=== PATIENT | female | born 1965 | race Hispanic/Latino ===

== ENCOUNTER 2020-10-08 07:36 | Emergency (ER) | payer SELFPAY ==
[2020-10-08 08:07] LABS: BASOPHILS % (AUTO) 0.6 % (0.0-5.0); EOSINOPHILS % (AUTO) 2.6 % (0.0-8.0); HEMATOCRIT 41.3 % (36-48); LYMPHOCYTES % (AUTO) 34.8 % (21.0-51.0); MEAN CORPUSCULAR HEMOGLOBIN 29.3 pg (27.0-33.0); MEAN CORPUSCULAR HGB CONC 33.2 g/dL (32.0-36.0); MEAN CORPUSCULAR VOLUME 88.4 fL (79-99); MONOCYTES % (AUTO) 13.8 % (3.0-13.0); NEUTROPHILS % (AUTO) 47.9 % (40.0-77.0); PLATELET COUNT (AUTO) 214 K/uL (130-400); RED BLOOD CELL COUNT(AUTO) 4.67 MIL/uL (4.00-5.50); RED CELL DISTRIBUTION WIDTH 12.2 % (11.0-15.5); WHITE BLOOD COUNT (AUTO) 6.2 K/uL (4.8-10.8)
[2020-10-08 08:22] LABS: APPEARANCE,URINE Clear (CLEAR); BILIRUBIN,URINE Negative (NEGATIVE); COLOR,URINE Yellow (YELLOW); GLUCOSE, URINE (UA) Negative (NEGATIVE); KETONES,URINE Negative (NEGATIVE); LEUKOCYTE ESTERASE ,URINE Negative (NEGATIVE); NITRATE,URINE Negative (NEGATIVE); OCCULT BLOOD,URINE Negative (NEGATIVE); PROTEIN,URINE Negative (NEGATIVE); UROBILINOGEN,URINE 0.2 mg/dL (0.2-1.0)
[2020-10-08 08:48] LABS: ALBUMIN 3.9 g/dL (3.5-5.0); BILIRUBIN,TOTAL 0.3 mg/dL (0.2-1.0); CREATININE 0.7 mg/dL (0.5-1.5); POTASSIUM 3.7 mmol/L (3.5-5.1); TOTAL PROTEIN, SERUM 7.8 g/dL (6.0-8.3)
[2020-10-08] MEDS ORDERED: KETOROLAC TROMETHAMINE 30MG/ML ONE (08:57)
== END 2020-10-08 10:44 | disposition home or self-care (01) ==
LOC: EDH 07:36
DX: R10.11 Right upper quadrant pain (principal); R11.2 Nausea with vomiting, unspecified; R03.0 Elevated blood-pressure reading, without diagnosis of hypertension; Z91.041 Radiographic dye allergy status; Z91.013 Allergy to seafood
CPT/HCPCS: 36415; 76705; 80053; 81003; 82550; 83690; 84484; 85025; 93005; 96374; 99285; J1885

== ENCOUNTER 2023-02-21 19:39 | Emergency (ER) | payer BC ==
[~2023-02-21] VITALS: Ht 162.6 cm; Wt 80.7 kg
[~2023-02-21 19:39] MED LIST: LEVO750T39 PO; TAMS-1 PO
[2023-02-21 21:08] VITALS: BP 167/97; PULSE 64; RESP 20
[2023-02-21] MEDS ORDERED: KETOROLAC 60 MG VIAL (30MG/ML) IM ONE (22:00)
[2023-02-21] MEDS ORDERED: HYDROCODONE/ACETAMINOPHEN 5/325 MG TAB PO ONE (22:00)
[2023-02-21] MEDS ORDERED: CYCL5TAB PO (23:08)
[2023-02-21] MEDS ORDERED: IBUP-2070 PO (23:08)
== END 2023-02-21 23:15 | disposition home or self-care (01) ==
LOC: EDH 19:39
DX: S16.1XXA Strain of muscle, fascia and tendon at neck level, initial encounter (principal); S39.012A Strain of muscle, fascia and tendon of lower back, initial encounter; S09.90XA Unspecified injury of head, initial encounter; I10 Essential (primary) hypertension; Z88.8 Allergy status to other drugs, medicaments and biological substances; W01.10XA Fall on same level from slipping, tripping and stumbling with subsequent striking against unspecified object, initial encounter; Y93.01 Activity, walking, marching and hiking; Y92.89 Other specified places as the place of occurrence of the external cause; Y99.8 Other external cause status
CPT/HCPCS: 99285; 70450; 72125; 72131; 96372; J1885

== ENCOUNTER 2023-05-14 14:27 | Emergency (ER) | payer BC ==
[~2023-05-14] VITALS: Ht 162.6 cm; Wt 78.5 kg
[~2023-05-14 14:27] MED LIST changes: +CYCL5TAB PO; +IBUP-2070 PO
[2023-05-14 14:55] VITALS: BP 117/85; PULSE 77; RESP 20
[2023-05-14 15:38] LABS: APPEARANCE,URINE CLEAR (CLEAR); BILIRUBIN,URINE NEGATIVE (NEGATIVE); COLOR,URINE LIGHT-YELLOW (YELLOW); GLUCOSE, URINE (UA) NEGATIVE (NEGATIVE); KETONES,URINE NEGATIVE (NEGATIVE); LEUKOCYTE ESTERASE ,URINE 500 Leu/uL (NEGATIVE); NITRATE,URINE NEGATIVE (NEGATIVE); OCCULT BLOOD,URINE LARGE (NEGATIVE); PH,URINE 5.5 (5.0-8.0); PROTEIN,URINE NEGATIVE (NEGATIVE); UROBILINOGEN,URINE 0.2 mg/dL (0.2-1.0)
[2023-05-14 15:42] LABS: ADD UA MICROSCOPIC YES
[2023-05-14 15:48] LABS: BACTERIA,URINE FEW /HPF (None Seen); MUCUS,URINE RARE LPF (None Seen); SQUAMOUS EPITHELIAL CELL,UR RARE /HPF (0-2); WBC,URINE 51-100 /HPF (0-1)
[2023-05-14 16:02] LABS: BASOPHILS # (AUTO) 0.05 K/uL (0.00-0.20); BASOPHILS % (AUTO) 0.4 % (0.0-5.0); EOSINOPHILS # (AUTO) 0.06 K/uL (0.00-0.70); EOSINOPHILS % (AUTO) 0.5 % (0.0-8.0); HEMATOCRIT 41.5 % (36-48); IMMATURE GRANULOCYTE ABSOLUTE 0.04 K/uL (0-1); LYMPHOCYTES # (AUTO) 1.8 K/uL (1.0-4.8); LYMPHOCYTES % (AUTO) 15.3 % (21.0-51.0); MEAN CORPUSCULAR HEMOGLOBIN 29.7 pg (27.0-33.0); MEAN CORPUSCULAR VOLUME 89.8 fL (79-99); MONOCYTES # (AUTO) 0.8 K/uL (0.1-1.0); MONOCYTES % (AUTO) 6.9 % (3.0-13.0); NEUTROPHILS # (AUTO) 8.9 K/uL (1.8-7.7); NEUTROPHILS % (AUTO) 76.6 % (40.0-77.0); PLATELET COUNT (AUTO) 226 K/uL (130-400); RED BLOOD CELL COUNT(AUTO) 4.62 MIL/uL (4.00-5.50); RED CELL DISTRIBUTION WIDTH 13.2 % (11.0-15.5); WHITE BLOOD COUNT (AUTO) 11.6 K/uL (4.8-10.8)
[2023-05-14 16:11] LABS: CREATININE 0.8 mg/dL (0.5-1.5); POTASSIUM 3.4 mmol/L (3.5-5.1)
[2023-05-14 16:16] LABS: ALBUMIN 3.6 g/dL (3.5-5.0); BILIRUBIN,TOTAL 0.5 mg/dL (0.2-1.0); TOTAL PROTEIN, SERUM 7.7 g/dL (6.0-8.3)
[2023-05-14] MEDS ORDERED: ONDANSETRON 4MG TABLET PO ONE (16:30)
[2023-05-14] MEDS ORDERED: KETOROLAC 30MG VIAL (30MG/ML) IM ONE (16:30)
[2023-05-14] MEDS ORDERED: CYCL-309 PO (17:37)
[2023-05-14] MEDS ORDERED: IBUP-2077 PO (17:37)
[2023-05-14] MEDS ORDERED: TAMS-1 PO (17:58)
[2023-05-14] MEDS ORDERED: CEPH500B PO (17:58)
[2023-05-14] MEDS ORDERED: KETO10TA2 PO (17:58)
== END 2023-05-14 19:40 | disposition home or self-care (01) ==
LOC: EDH 14:27
DX: N13.2 Hydronephrosis with renal and ureteral calculous obstruction (principal); N23 Unspecified renal colic; N39.0 Urinary tract infection, site not specified; D72.829 Elevated white blood cell count, unspecified; E86.0 Dehydration; Z88.8 Allergy status to other drugs, medicaments and biological substances; Z91.041 Radiographic dye allergy status
CPT/HCPCS: 99284; 74176; 80053; 85025; 87077; 87088; 87186; 81001; 36415; 96372; Q0162; J1885

== ENCOUNTER 2023-08-14 14:36 | Emergency (ER) | payer BC ==
[~2023-08-14] VITALS: Ht 162.6 cm; Wt 80.7 kg
[~2023-08-14 14:36] MED LIST changes: +CEPH500B PO; +CYCL-309 PO; +IBUP-2077 PO; +KETO10TA2 PO
[2023-08-14 15:09] LABS: RAPID GROUP A STREP negative (NEGATIVE)
[2023-08-14 15:11] LABS: APPEARANCE,URINE CLOUDY (CLEAR); BILIRUBIN,URINE NEGATIVE (NEGATIVE); COLOR,URINE BROWN (YELLOW); GLUCOSE, URINE (UA) NEGATIVE (NEGATIVE); KETONES,URINE NEGATIVE (NEGATIVE); LEUKOCYTE ESTERASE ,URINE 250 Leu/uL (NEGATIVE); NITRATE,URINE NEGATIVE (NEGATIVE); OCCULT BLOOD,URINE LARGE (NEGATIVE); PROTEIN,URINE 30 mg/dL (NEGATIVE); UROBILINOGEN,URINE 0.2 mg/dL (0.2-1.0)
[2023-08-14 15:13] LABS: SARS-CoV-2, RNA, NAAT NEGATIVE SARS CoV-2 (NEGATIVE)
[2023-08-14 15:14] LABS: ADD UA MICROSCOPIC YES
[2023-08-14 15:19] LABS: INFLUENZA TYPE A Negative For Type A (NEGATIVE); INFLUENZA TYPE B Negative For Type B (NEGATIVE)
[2023-08-14 15:26] LABS: BASOPHILS # (AUTO) 0.03 K/uL (0.00-0.20); BASOPHILS % (AUTO) 0.4 % (0.0-5.0); EOSINOPHILS # (AUTO) 0.01 K/uL (0.00-0.70); EOSINOPHILS % (AUTO) 0.1 % (0.0-8.0); HEMATOCRIT 40.9 % (36-48); IMMATURE GRANULOCYTE ABSOLUTE 0.04 K/uL (0-1); LYMPHOCYTES # (AUTO) 1.4 K/uL (1.0-4.8); LYMPHOCYTES % (AUTO) 16.6 % (21.0-51.0); MEAN CORPUSCULAR HEMOGLOBIN 29.3 pg (27.0-33.0); MEAN CORPUSCULAR VOLUME 86.3 fL (79-99); MONOCYTES # (AUTO) 0.6 K/uL (0.1-1.0); MONOCYTES % (AUTO) 7.3 % (3.0-13.0); NEUTROPHILS # (AUTO) 6.3 K/uL (1.8-7.7); NEUTROPHILS % (AUTO) 75.1 % (40.0-77.0); PLATELET COUNT (AUTO) 225 K/uL (130-400); RED BLOOD CELL COUNT(AUTO) 4.74 MIL/uL (4.00-5.50); RED CELL DISTRIBUTION WIDTH 12.9 % (11.0-15.5); WHITE BLOOD COUNT (AUTO) 8.4 K/uL (4.8-10.8)
[2023-08-14 15:26] LABS: BACTERIA,URINE RARE /HPF (None Seen); MUCUS,URINE RARE LPF (None Seen); RBC,URINE TNTC /HPF (0-1); SQUAMOUS EPITHELIAL CELL,UR RARE /HPF (0-2); YEAST,URINE BUDDING RARE /HPF (None Seen)
[2023-08-14 15:39] LABS: CREATININE 0.7 mg/dL (0.5-1.5); POTASSIUM 3.7 mmol/L (3.5-5.1)
[2023-08-14] MEDS ORDERED: AMOX1TAB16 PO (16:18)
[2023-08-14 17:08] VITALS: BP 133/74; PULSE 94; RESP 18; O2SAT 97
[2023-08-14] MEDS: ACETAMINOPHEN 500 MG TABLET PO ONE (17:15)
[2023-08-14] MEDS: AMOX/CLAV 875/125MG TAB PO ONE (17:15)
== END 2023-08-14 17:16 | disposition home or self-care (01) ==
LOC: EDH 14:36
DX: J03.90 Acute tonsillitis, unspecified (principal); N30.01 Acute cystitis with hematuria; R50.9 Fever, unspecified; Z20.822 Contact with and (suspected) exposure to COVID-19; Z88.8 Allergy status to other drugs, medicaments and biological substances; Z91.041 Radiographic dye allergy status
CPT/HCPCS: 36415; 80048; 81001; 83605; 85025; 87040; 87088; 87635; 87804; 87880

== ENCOUNTER 2023-08-21 04:01 | Emergency (ER) | payer BC ==
[~2023-08-21] VITALS: Ht 162.6 cm; Wt 80.7 kg
[~2023-08-21 04:01] MED LIST changes: +AMOX1TAB16 PO
[2023-08-21] MEDS: ONDANSETRON 4MG INJ IVP ONE (04:44)
[2023-08-21 04:45] LABS: APPEARANCE,URINE CLEAR (CLEAR); BILIRUBIN,URINE NEGATIVE (NEGATIVE); COLOR,URINE LIGHT-YELLOW (YELLOW); GLUCOSE, URINE (UA) NEGATIVE (NEGATIVE); KETONES,URINE NEGATIVE (NEGATIVE); LEUKOCYTE ESTERASE ,URINE 250 Leu/uL (NEGATIVE); NITRATE,URINE NEGATIVE (NEGATIVE); OCCULT BLOOD,URINE LARGE (NEGATIVE); PH,URINE 5.5 (5.0-8.0); PROTEIN,URINE 10 mg/dL (NEGATIVE); UROBILINOGEN,URINE 0.2 mg/dL (0.2-1.0)
[2023-08-21 04:52] LABS: ADD UA MICROSCOPIC YES
[2023-08-21 04:54] LABS: BACTERIA,URINE RARE /HPF (None Seen); MUCUS,URINE RARE LPF (None Seen); RBC,URINE 26-50 /HPF (0-1); SQUAMOUS EPITHELIAL CELL,UR RARE /HPF (0-2); WBC,URINE 51-100 /HPF (0-1)
[2023-08-21 04:55] LABS: BASOPHILS # (AUTO) 0.04 K/uL (0.00-0.20); BASOPHILS % (AUTO) 0.4 % (0.0-5.0); EOSINOPHILS # (AUTO) 0.26 K/uL (0.00-0.70); EOSINOPHILS % (AUTO) 2.6 % (0.0-8.0); HEMATOCRIT 37.4 % (36-48); IMMATURE GRANULOCYTE ABSOLUTE 0.03 K/uL (0-1); LYMPHOCYTES # (AUTO) 3.4 K/uL (1.0-4.8); LYMPHOCYTES % (AUTO) 33.8 % (21.0-51.0); MEAN CORPUSCULAR HEMOGLOBIN 29.1 pg (27.0-33.0); MEAN CORPUSCULAR VOLUME 85.6 fL (79-99); MONOCYTES # (AUTO) 0.7 K/uL (0.1-1.0); MONOCYTES % (AUTO) 7.3 % (3.0-13.0); NEUTROPHILS # (AUTO) 5.6 K/uL (1.8-7.7); NEUTROPHILS % (AUTO) 55.6 % (40.0-77.0); PLATELET COUNT (AUTO) 274 K/uL (130-400); RED BLOOD CELL COUNT(AUTO) 4.37 MIL/uL (4.00-5.50); RED CELL DISTRIBUTION WIDTH 12.8 % (11.0-15.5); WHITE BLOOD COUNT (AUTO) 10.1 K/uL (4.8-10.8)
[2023-08-21] MEDS: KETOROLAC 30MG VIAL (30MG/ML) IVP ONE (05:00)
[2023-08-21 05:15] LABS: ALBUMIN 3.5 g/dL (3.5-5.0); BILIRUBIN,TOTAL 0.3 mg/dL (0.2-1.0); CREATININE 0.8 mg/dL (0.5-1.5); POTASSIUM 3.8 mmol/L (3.5-5.1); TOTAL PROTEIN, SERUM 7.4 g/dL (6.0-8.3)
[2023-08-21] MEDS: MORPHINE 2 MG SYG IVP ONE (06:04)
[2023-08-21] MEDS: CEFTRIAXONE 1G VIAL IVPB ONE (06:13)
[2023-08-21] MEDS ORDERED: MORPHINE 2 MG SYG IV PRN (08:00)
[2023-08-21] MEDS ORDERED: ONDANSETRON 4MG INJ IV PRN (08:00)
[2023-08-21] MEDS ORDERED: ACETAMINOPHEN 325 MG TAB PO PRN ×2 (08:00)
[2023-08-21 08:08] VITALS: BP 120/70; PULSE 77; RESP 17; O2SAT 95
[2023-08-21] MEDS: 0.9%NACL 1000ML 1,000 ML IV SCH (08:29)
[2023-08-21] MEDS: FAMOTIDINE 20MG TAB PO SCH (08:30)
[2023-08-21] MEDS: IBUPROFEN 800 MG TAB PO ONE (08:30)
== END 2023-08-21 08:40 | disposition left against medical advice (07) ==
LOC: EDH 04:01
DX: R10.32 Left lower quadrant pain (principal); Z88.8 Allergy status to other drugs, medicaments and biological substances; Z91.041 Radiographic dye allergy status
CPT/HCPCS: 99284; 74176; 96374; 96375; 80053; 83690; 85025; 85651; 87088; 81001; 36415; J2270; J0696; J2405; J1885

== ENCOUNTER 2025-05-19 22:09 | Emergency (ER) | payer BC ==
[~2025-05-19] VITALS: Ht 162.6 cm; Wt 80.3 kg
[~2025-05-19 22:09] MED LIST changes: -CYCL5TAB PO; +CYCL5TAB3 PO; +IBUP-1492 PO; -IBUP-2070 PO; -LEVO750T39 PO; +LEVO750T90 PO; -TAMS-1 PO; +TAMS-55 PO
[2025-05-19 22:57] LABS: IMMATURE GRANULOCYTE ABSOLUTE 0.02 K/uL (0-1); NUCLEATED RED BLOOD CELLS 0.0 % (0.0-0.19); PLATELET COUNT (AUTO) 221 K/uL (130-400); RED BLOOD CELL COUNT(AUTO) 4.62 MIL/uL (4.00-5.50); RED CELL DISTRIBUTION WIDTH 12.8 % (11.0-15.5); WHITE BLOOD COUNT (AUTO) 7.6 K/uL (4.8-10.8)
[2025-05-19 23:12] LABS: ASPARTATE AMINOTRANSFERASE 19.0 U/L (10-37); CREATININE 0.7 mg/dL (0.5-1.0); GLOMERULAR FILTR. RATE CALC 100.0 mL/min (>90); GLUCOSE,RANDOM 116.0 mg/dL (70-105); SODIUM SERUM 139.0 mmol/L (136-145); TOTAL PROTEIN, SERUM 7.3 g/dL (6.0-8.3); UREA NITROGEN, BLOOD 16.0 mg/dL (7-18)
--- NOTE | 2025-05-19 23:12 | NUR ---
REPORT RECEIVED FROM RICHARD MOTA. PATIENT MOVED TO ER05. PATIENT CARE ASSUMED AT THIS TIME.
[2025-05-19] MEDS: 0.9%NACL 1000ML 1,000 ML IV ONE (23:19)
[2025-05-19 23:28] LABS: APPEARANCE,URINE CLEAR (CLEAR); GLUCOSE, URINE (UA) NEGATIVE (NEGATIVE); LEUKOCYTE ESTERASE ,URINE NEGATIVE Leu/uL (NEGATIVE); NITRATE,URINE NEGATIVE (NEGATIVE); OCCULT BLOOD,URINE NEGATIVE (NEGATIVE)
[2025-05-19 23:29] LABS: ADD UA MICROSCOPIC NO
--- NOTE | 2025-05-20 00:54 | HMCIMG ---
EXAM: CT Abdomen and Pelvis Without IV contrast CLINICAL HISTORY: ABD PAIN ruq, flank. TECHNIQUE: Axial computed tomography images of the abdomen and pelvis without intravenous contrast. CONTRAST: No IV contrast. COMPARISON: Ultrasound right upper quadrant study performed on the same day. FINDINGS: LUNG BASES: Streaky atelectasis is seen in the lower lobes. There is a 4 mm calcified granuloma in the right lower lobe. Small calcified right infrahilar lymph nodes are seen, incompletely imaged. No pleural effusions are seen. Hyperdensities at the mitral valve. LIVER: Mild hepatomegaly with diffuse fatty infiltration of the liver is seen. GALLBLADDER AND BILE DUCTS: The gallbladder appears within normal limits. No radiopaque gallstones are seen. No biliary ductal dilatation is evident. PANCREAS: Unremarkable. SPLEEN: Unremarkable. ADRENAL GLANDS: Unremarkable. KIDNEYS, URETERS, AND BLADDER: There is mild fullness of the renal collecting system and ureters bilaterally. There is no renal/ureteric calculus or hydroureteronephrosis. The urinary bladder is partially distended. STOMACH AND BOWEL: Unremarkable appearance of the stomach and bowel. No evidence of bowel obstruction. No evidence suggesting enteritis or colitis. There are multiple colonic diverticula without evidence of acute diverticulitis. However, there are sequelae of chronic diverticulitis in the sigmoid colon showing circumferential long segment mural thickening with crowding of colonic haustrations. APPENDIX: No evidence of acute appendicitis on CT examination. PERITONEUM: No free fluid. No free air. LYMPH NODES: No lymphadenopathy is evident. REPRODUCTIVE: Unremarkable as visualized for age. VASCULATURE: No evidence of abdominal aortic aneurysm. BONES: No aggressive-appearing osseous lesion. No acute osseous pathology is evident. There is a soft tissue mass in the right breast, incompletely imaged. IMPRESSION: No CT evidence of cholelithiasis, acute cholecystitis, or biliary obstruction. No renal/ureteric calculus or ureteral obstruction. Mild hepatomegaly with diffuse fatty infiltration of the liver. Colonic diverticulosis with the sequelae of chronic diverticulitis in the sigmoid colon. No evidence of acute diverticulitis. Other findings as described above. /[place]
--- NOTE | 2025-05-20 01:03 | ERN ---
ED Note History of Present Illness Stated Complaint: C/O RUQ PAIN W/N X V, Chief Complaint: Abdominal Pain Time Seen by MD: 22:29 Time Seen by Midlevel: 22:29 Dictation: The patient is a 60-year-old female with a history of kidney stones who presents to the emergency department with complaints of right upper abdominal pain that radiates to the back associated with nausea nonbloody vomiting. Patient reports that she has been having these symptoms since 2021 after she had a renal stent but reports this episode started today. Patient denies any diarrhea, denies any fevers, denies any bloody in urine. Allergies: Coded Allergies: Iodine and Iodide Containing Produc (Unverified Allergy, Unknown, 10/08/20) Home Meds Active Scripts Amoxicillin/Potassium Clav (Amox Tr-K Clv 875-125 mg Tab) 875 Mg-125 Mg Tablet, 1 EACH PO BID for 10 Days, #20 TAB 0 Refills Prov:FLORENCE GARCIAS [facility] 08/14/23 Tamsulosin HCl (Flomax) 0.4 Mg Cap.er.24h, 0.4 MG PO DAILY, #15 CAPSULE.DR Prov:KHALIDA LOTT Jr. [facility] 05/14/23 Ketorolac Tromethamine (Ketorolac Tromethamine) 10 Mg Tablet, 10 MG PO Q6HPRN PRN for PAIN, #20 TAB Prov:KHALIDA LOTT Jr. [facility] 05/14/23 Cephalexin Monohydrate (Keflex) 500 Mg Cap, 500 MG PO TID, #30 CAP Prov:KHALIDA LOTT Jr. [facility] 05/14/23 Cyclobenzaprine HCl (Cyclobenzaprine HCl) 10 Mg Tablet, 10 MG PO TID, #30 TAB Prov:KHALIDA LOTT Jr. [facility] 05/14/23 Ibuprofen (Ibuprofen 800 mg Tab) 800 Mg Tab, 800 MG PO TID PRN for PAIN, #30 TAB Prov:KHALIDA LOTT Jr. [facility] 05/14/23 Ibuprofen (Ibuprofen) 600 Mg Tablet, 600 MG PO Q6H PRN for PAIN, #15 TAB Prov:RALPH LEBLANC 02/21/23 Cyclobenzaprine HCl (Cyclobenzaprine HCl) 5 Mg Tablet, 5 MG PO DAILYDINNER for 5 Days, #5 TAB Prov:RALPH LEBLANC 02/21/23 Levofloxacin (Levofloxacin) 750 Mg Tablet, 750 MG PO DAILY, #7 TAB 0 Refills Prov:TIAGO QUINTANA MD 02/06/23 Tamsulosin HCl (Flomax) 0.4 Mg Cap.er.24h, 0.4 MG PO DAILY, #30 CAPSULE.DR Prov:TIAGO QUINTANA MD 02/06/23 Past Medical History Past Medical History: Hypertension Additional Past Medical Hx: HX OF KIDNEY STONES Surgical History: Other Surgical History Other: NEPHROSTOMY Family History: Negative Social History: Negative History: Not Applicable RN Note Reviewed/Agreed w/PFSH: Yes Review of System Dictation Constitutional: Negative for fever,chills, and weight loss Eyes: Negative for injury, pain,redness, and discharge ENT: Negative for injury,pain or swelling Cardiovascular: Negative for chest pain, palpitations, and edema Respiratory: Negative for shortness of breath, cough, and wheezing, Abdomen/GI: Negative for diarrhea, and constipation positive for abdominal pain, nausea, vomiting Back: Negative for injury and pain : Negative for injury, bleeding and discharge MS/Extremity: Negative for injury and deformity Skin: Negative for rash, and discoloration Neuro: Negative for headache, weakness, numbness, tingling, and seizure Psych: Negative for suicide ideation, homicidal ideation, and hallucinations Initial Vital Sign VS Vital Signs Date Time Temp Pulse Resp B/P (MAP) Pulse Ox O2 Delivery O2 Flow Rate FiO2 05/19/25 22:10 98.2 79 20 166/88 98 Room Air 05/19/25 23:12 0 21 Physical Exam Dictation Vital Signs reviewed General Appearance: Alert, oriented x 3, no acute distress, well developed, n ourished. Head and Face: non-traumatic. Eyes: PERRL, pink conjunctivas, eyelid no trauma, anterior chamber with arcus senilis. Ears: Pinnas intact and no signs of trauma or erythema ear canals clear and no discharge TM no erythema Nose: No discharge, no bleeding. Oropharynx: Mouth normal, tongue pink. pharynx clear,no erythema, tonsils no exudates, no abscesses noted, mucous m embrane moist Neck: Supple, non-tender, no thyromegaly, no masses, no JVD, no bruits Breast:Deferred Chest:No tenderness, no crepitus, no paradoxical movement, no retractions Lungs:Clear, well-ventilated, symmetric, no rales, no wheezing, no rhonchi, no stridor, good breath sounds bilaterally Heart: Regular rate, regular rhythm, no murmur, no gallops Vascular: no peripheral edema, Abdomen: Soft, positive bowel sounds, nondistended, no guarding, Right upper quadrant tenderness,, no rebound, no masses no hepatomegaly, no splenomegaly, no Ramirez's sign, no hernias. Rectal: Deferred Genital: Deferred Neurological: Normal speech, motor function intact, sensory function intact Musculoskeletal: Neck nontender, full range of motion, back nontender, full ra nge of motion, Extremities: nontender, full range of motion Skin: Color pink, dry, no turgor, no rash, no lacerations, no abrasions, no contusions. Lymphatic: Deferred Results (Laboratory/Radiology) Laboratory/Radiology Laboratory Tests Test 05/19/25 22:20 05/19/25 22:45 Urine Color COLORLESS (YELLOW) Urine Appearance CLEAR (CLEAR) Urine pH 6.5 (5.0-8.0) Urine Specific [place] 1.009 (1.001-1.031) Urine Protein NEGATIVE mg/dL (NEGATIVE) Urine Glucose (UA) NEGATIVE mg/dL (NEGATIVE) Urine Ketones NEGATIVE mg/dL (NEGATIVE) Urine Occult Blood NEGATIVE (NEGATIVE) Urine Nitrate NEGATIVE (NEGATIVE) Urine Bilirubin NEGATIVE mg/dL (NEGATIVE) Urine Urobilinogen 0.2 mg/dL (0.2-1.0) Urine Leukocyte Esterase NEGATIVE Ileana/uL White Blood Count 7.6 K/uL (4.8-10.8) Red Blood Count 4.62 MIL/uL (4.00-5.50) Hemoglobin 13.5 g/dL (12.0-16.0) Hematocrit 41.1 % (36-48) Mean Corpuscular Volume 89.0 fL (79-99) Mean Corpuscular Hemoglobin 29.2 pg (27.0-33.0) Mean Corpuscular Hemoglobin Concent 32.8 g/dL (32.0-36.0) Red Cell Distribution Width 12.8 % (11.0-15.5) Platelet Count 221 K/uL (130-400) Mean Platelet Volume 10.6 fL (7.5-10.5) H Immature Granulocyte % (Auto) 0.3 % (0-1) Neutrophils (%) (Auto) 45.8 % (40.0-77.0) Lymphocytes (%) (Auto) 43.9 % (21.0-51.0) Monocytes (%) (Auto) 7.1 % (3.0-13.0) Eosinophils (%) (Auto) 2.4 % (0.0-8.0) Basophils (%) (Auto) 0.5 % (0.0-5.0) Neutrophils # (Auto) 3.5 K/uL (1.8-7.7) Lymphocytes # (Auto) 3.3 K/uL (1.0-4.8) Monocytes # (Auto) 0.5 K/uL (0.1-1.0) Eosinophils # (Auto) 0.18 K/uL (0.00-0.70) Basophils # (Auto) 0.04 K/uL (0.00-0.20) Absolute Immature Granulocyte (auto 0.02 K/uL (0-1) Nucleated Red Blood Cells 0.0 % (0.0-0.19) Sodium Level 139 mmol/L (136-145) Potassium Level 3.6 mmol/L (3.5-5.1) Chloride Level 104 mmol/L (101-111) Carbon Dioxide Level 26 mmol/L (21-32) Blood Urea Nitrogen 16 mg/dL (7-18) Creatinine 0.7 mg/dL (0.5-1.0) Glomerular Filtration Rate Calc 100 mL/min (>90) Random Glucose 116 mg/dL (70-105) H Total Calcium 7.9 mg/dL (8.5-10.1) L Total Bilirubin 0.2 mg/dL (0.2-1.0) Direct Bilirubin 0.1 mg/dL (0.0-0.3) Aspartate Amino Transf (AST/SGOT) 19 U/L (10-37) Alanine Aminotransferase (ALT/SGPT) 28 U/L (12-78) Alkaline Phosphatase 99 U/L (50-136) Troponin I High Sensitivity < 4 ng/L (4-50) L Total Protein 7.3 g/dL (6.0-8.3) Albumin 3.5 g/dL (3.5-5.0) Lipase 35 U/L (16-77) REASON: ABD PAIN ruq, flank ORDERING PHYSICIAN: JULIAN AMBRIZ PROCEDURE: ABD PEL WO - CT ABDOMEN/PELVIS W/O CONTRAST EXAM: CT Abdomen and Pelvis Without IV contrast CLINICAL HISTORY: ABD PAIN ruq, flank. TECHNIQUE: Axial computed tomography images of the abdomen and pelvis without intravenous contrast. CONTRAST: No IV contrast. COMPARISON: Ultrasound right upper quadrant study performed on the same day. FINDINGS: LUNG BASES: Streaky atelectasis is seen in the lower lobes. There is a 4 mm calcified granuloma in the right lower lobe. Small calcified right infrahilar lymph nodes are seen, incompletely imaged. No pleural effusions are seen. Hyperdensities at the mitral valve. LIVER: Mild hepatomegaly with diffuse fatty infiltration of the liver is seen. GALLBLADDER AND BILE DUCTS: The gallbladder appears within normal limits. No radiopaque gallstones are seen. No biliary ductal dilatation is evident. PANCREAS: Unremarkable. SPLEEN: Unremarkable. ADRENAL GLANDS: Unremarkable. KIDNEYS, URETERS, AND BLADDER: There is mild fullness of the renal collecting system and ureters bilaterally. There is no renal/ureteric calculus or hydroureteronephrosis. The urinary bladder is partially distended. STOMACH AND BOWEL: Unremarkable appearance of the stomach and bowel. No evidence of bowel obstruction. No evidence suggesting enteritis or colitis. There are multiple colonic diverticula without evidence of acute diverticulitis. However, there are sequelae of chronic diverticulitis in the sigmoid colon showing circumferential long segment mural thickening with crowding of colonic haustrations. APPENDIX: No evidence of acute appendicitis on CT examination. PERITONEUM: No free fluid. No free air. LYMPH NODES: No lymphadenopathy is evident. REPRODUCTIVE: Unremarkable as visualized for age. VASCULATURE: No evidence of abdominal aortic aneurysm. BONES: No aggressive-appearing osseous lesion. No acute osseous pathology is evident. There is a soft tissue mass in the right breast, incompletely imaged. IMPRESSION: No CT evidence of cholelithiasis, acute cholecystitis, or biliary obstruction. No renal/ureteric calculus or ureteral obstruction. Mild hepatomegaly with diffuse fatty infiltration of the liver. Colonic diverticulosis with the sequelae of chronic diverticulitis in the sigmoid colon. No evidence of acute diverticulitis. Other findings as described above. /[place] REASON: Adominal Pain ORDERING PHYSICIAN: JULIAN AMBRIZ PROCEDURE: [id number] - US ABDOMINAL RUQ\LTD EXAMINATION: ULTRASOUND OF THE ABDOMEN (LIMITED) WITH COLOR DOPPLER. CLINICAL HISTORY: Pain. COMPARISON: CT of the abdomen and pelvis without contrast from the same day. TECHNIQUE: Real-time grayscale ultrasound images of the abdomen. In addition, color Doppler is medically necessary to perform in order to evaluate vascularity and blood flow. FINDINGS: Liver: Bulky in caliber, the right hepatic lobe measures 16.3 cm in the craniocaudal dimension. There is increased echogenicity of the hepatic parenchyma. There is no focal hepatic abnormality or intrahepatic biliary ductal dilatation. There is normal spectral Doppler of the main portal vein. Gallbladder: Contracted with normal wall thickness (0.2 cm). No hyperemia or pericholecystic free fluid. There is no cholelithiasis. Common bile duct is normal in caliber, measuring 0.3 cm. Pancreas: Normal in caliber and echotexture. No calcification or dilated pancreatic duct. The right kidney is normal in caliber, the right kidney measures 10.4 x 4.4 x 4.5 cm in its craniocaudal, AP, and transverse dimensions respectively. There is normal renal cortical thickness, and cortical echogenicity. There is no renal calculus or hydronephrosis. IMPRESSION: No acute process. Hepatomegaly with hepatic steatosis. Contracted gallbladder, which could be secondary to postprandial status. /[place] Labs Reviewed?: Yes EKG: (+) rhythm (sinus rhythm) EKG Comment: Date:05/19/2025 Time: 2324 Ventricular rate:62 [place] interval:153 QRS duration:100 QT/QTc:432/435 EKG interpretation:sinus rhythm Reviewed by ED Attending ED Course ED Course Orders Procedure Category Date Status Time Cbc With Differential LAB 05/19/25 Complete 22:37 Troponin I High LAB 05/19/25 Complete Sensitivity 22:37 Urinalysis Profile LAB 05/19/25 Complete 22:37 Us Abdominal Ruq\Ltd US 05/19/25 Resulted 22:37 12 Lead Ekg Tracing- EKG 05/19/25 Logged Technical 22:37 0.9%Nacl 1000ml (Ns PHA 05/19/25 Complete 1000ml) 23:00 Morphine 4mg Syg PHA 05/19/25 Complete (Morphine 4mg Syg) 23:00 Ondansetron 4mg Inj PHA 05/19/25 Complete (Zofran 4mg Inj) 23:00 Pantoprazole 40mg Inj PHA 05/19/25 Complete (Protonix 40mg Inj 23:00 Lipase LAB 05/19/25 Complete 22:37 Basic Metabolic Panel LAB 05/19/25 Complete 22:37 Hepatic Function Panel LAB 05/19/25 Complete 22:37 Ct Abdomen/Pelvis W/O CT 05/19/25 Resulted Contrast 23:44 Ketorolac PHA 05/20/25 Complete Tromethamine 30mg/Ml 02:00 Current Medications Medications (Trade) Dose Ordered Sig/Jolene Route PRN Reason Start Time Stop Time Status Last Admin Dose Admin Ketorolac Tromethamine (toRADol) 30 mg ONCE ONCE IVP 05/20/25 02:00 05/20/25 02:01 DC 05/20/25 02:06 Morphine Sulfate (morPHINE 4MG SYG) 4 mg ONCE ONCE IVP 05/19/25 23:00 05/19/25 23:01 DC 05/19/25 23:19 Ondansetron HCl (zoFRAN 4MG INJ) 4 mg ONCE ONCE IVP 05/19/25 23:00 05/19/25 23:01 DC 05/19/25 23:19 Pantoprazole Sodium (PROTonix 40MG INJ) 40 mg ONCE ONCE IVP 05/19/25 23:00 05/19/25 23:01 DC 05/19/25 23:18 Sodium Chloride 1,000 ml @ 0 mls/hr ONCE ONCE IV 05/19/25 23:00 05/19/25 23:01 DC 05/19/25 23:19 Vital Signs Date Time Temp Pulse Resp B/P (MAP) Pulse Ox O2 Delivery O2 Flow Rate FiO2 05/19/25 23:12 98.2 71 14 139/58 98 Room Air* 0 21 05/19/25 22:10 98.2 79 20 166/88 98 Room Air Medical Decision Making MDM The patient is a 60-year-old female with a history of kidney stones who presents to the emergency department with complaints of right upper abdominal pain that radiates to the back associated with nausea nonbloody vomiting. Patient reports that she has been having these symptoms since 2021 after she had a renal stent but reports this episode started today. Patient denies any diarrhea, denies any fevers, denies any bloody in urine. CBC showed no leukocytosis, no anemia, chemistry showed no electrolyte imbalance, negative troponin, urinalysis unremarkable. CT abdomen showed chronic diverticulitis no CT evidence of cholelithiasis or cholecystitis. No renal calculi. Patient otherwise in no acute distress, nontoxic appearance, neurologically intact. Patient will be discharged to follow up with PCP. Differential diagnosis: Cholelithiasis, cholecystitis, kidney stones, gas tritis, dehydration Need for hospitalization: Patient does not meet criteria for hospitalization. There are no social concerns with this patient. DX & DISP Disposition: Discharge Departure Impression: Primary Impression: Abdominal pain Additional Impression: Diverticulosis Condition: Stable Scripts Ondansetron (Ondansetron Odt) 4 Mg Tab.rapdis 4 MG PO Q6HPRN PRN for nausea, #16 TAB 0 Refills Prov: JULIAN AMBRIZ [employer] 05/20/25 Pantoprazole Sodium (Pantoprazole Sodium) 20 Mg Tablet.dr 1 TAB PO DAILY for 30 Days, #30 TAB 0 Refills Prov: JULIAN AMBRIZ [employer] 05/20/25 Additional Instructions: Follow up with the primary doctor in 1-2 days. Avoid any medications that exacerbate your symptoms. Your CT scan showed a calcified granuloma of the right lung that will have to be follow up with your primary doctor If anything worsens please return to ER. FOLLOW-UP WITH PRIMARY CARE PROVIDER IN 1 TO 2 DAYS. TAKE MEDICATIONS DIRECTED HERE IN THE EMERGENCY ROOM. OKAY TO CONTINUE HOME MEDICATIONS UNLESS OTHERWISE DISCUSSED DURING YOUR VISIT IN THE EMERGENCY ROOM TODAY. RETURN TO YOUR NEAREST EMERGENCY ROOM IF SYMPTOMS WORSEN OR IF THERE IS NO IMPROVEMENT. CALL 911 IF YOU NEED IMMEDIATE ASSISTANCE. TAKE TYLENOL [id number] NEEDED AND IF NO CONTRAINDICATIONS ARE PRESENT. INCREASE ORAL HYDRATION. A WOUND CULTURE OR URINE CULTURE WAS ORDERED HERE IN THE EMERGENCY ROOM DEPARTMENT PLEASE FOLLOW-UP WITH PRIMARY CARE PROVIDER AND ADVISE THEM TO GET REPEAT PORTS FROM OUR FACILITY. IF YOU HAD ANY BERNY WRAP/SPLINTS THAT WERE APPLIED HERE, PLEASE DO NOT REMOVE THEM UNTIL YOU SEE YOUR PRIMARY CARE OR SPECIALTY. Referrals: TESSA HAYS MD (PCP) Time of Disposition: 02:30 I have reviewed the case, and I agree with, Diagnosis and Plan JULIAN AMBRIZ [facility] May 20, 2025 01:03
--- NOTE | 2025-05-20 01:06 | HMCIMG ---
EXAMINATION: ULTRASOUND OF THE ABDOMEN (LIMITED) WITH COLOR DOPPLER. CLINICAL HISTORY: Pain. COMPARISON: CT of the abdomen and pelvis without contrast from the same day. TECHNIQUE: Real-time grayscale ultrasound images of the abdomen. In addition, color Doppler is medically necessary to perform in order to evaluate vascularity and blood flow. FINDINGS: Liver: Bulky in caliber, the right hepatic lobe measures 16.3 cm in the craniocaudal dimension. There is increased echogenicity of the hepatic parenchyma. There is no focal hepatic abnormality or intrahepatic biliary ductal dilatation. There is normal spectral Doppler of the main portal vein. Gallbladder: Contracted with normal wall thickness (0.2 cm). No hyperemia or pericholecystic free fluid. There is no cholelithiasis. Common bile duct is normal in caliber, measuring 0.3 cm. Pancreas: Normal in caliber and echotexture. No calcification or dilated pancreatic duct. The right kidney is normal in caliber, the right kidney measures 10.4 x 4.4 x 4.5 cm in its craniocaudal, AP, and transverse dimensions respectively. There is normal renal cortical thickness, and cortical echogenicity. There is no renal calculus or hydronephrosis. IMPRESSION: No acute process. Hepatomegaly with hepatic steatosis. Contracted gallbladder, which could be secondary to postprandial status. /[place]
[2025-05-20] MEDS ORDERED: PANT20TA18 PO (02:31)
[2025-05-20] MEDS ORDERED: ONDA-243 PO (02:31)
[2025-05-20 03:23] VITALS: BP 137/63; PULSE 73; RESP 15; TEMP 98.2; O2SAT 98
--- NOTE | 2025-05-20 05:46 | EKG ---
[facility] Test Date: 2025-05-19 Test Time: 23:25:19 Pat Name: BRYCE STARR Department: ED Room: Gender: F Policy Officer: [id number] : 1965 Requested By: JULIAN AMBRIZ Order Number: [id number] Reading MD: Dominique Patterson Measurements Intervals [place] Rate: 62 P: 54 MO: 153 QRS: 5 QRSD: 100 T: 66 QT: 432 QTc: 435 Interpretive Statements Sinus rhythm Ventricular premature complex Compared to ECG 10/08/2020 08:23:45 Ventricular premature complex(es) now present Electronically Signed On 05-21-2025 08:48:59 HR ADVISOR by Dominique Patterson Please click the below link to view image of tracing.
== END 2025-05-20 03:23 | disposition home or self-care (01) ==
LOC: EDH 22:09
DX: K57.30 Diverticulosis of large intestine without perforation or abscess without bleeding (principal); I10 Essential (primary) hypertension; Z87.442 Personal history of urinary calculi; Z88.8 Allergy status to other drugs, medicaments and biological substances
CPT/HCPCS: 99285; 74176; 96374; 76705; 96375 ×2; 96361; 80076; 84484; 80048; 83690; 85025; 81003; 36415; 93005; J7030; J2405; J2270; J2470; J1885